=== PATIENT | male | born 1955 | race Hispanic/Latino ===

== ENCOUNTER → 2020-01-03 | Outpatient (CLI) | payer MEDICARE ==
[~2020-01-03] VITALS: Ht 167.6 cm; Wt 88.0 kg
[~2020-01-03] MED LIST: REGADENOSON 0.4 MG/5 ML PF SYG IVP SCH
== END | disposition home or self-care (01) ==
LOC: SHCH 08:20
PROVIDERS: ATTEND Internal Medicine Cardiovascular Disease
DX: R07.9 Chest pain, unspecified (principal)
CPT/HCPCS: 78452; 93017; 96374; A9500 ×2; J2785

== ENCOUNTER 2022-12-24 11:55 | Emergency (ER) | payer OTHER, MEDICARE ==
[~2022-12-24] VITALS: Ht 170.2 cm; Wt 90.7 kg
[2022-12-24] MEDS ORDERED: CLINDAMYCIN IVPB 600MG/50ML 50 ML IV SCH (12:30)
[2022-12-24] MEDS ORDERED: 0.9%NACL 1000ML 1,000 ML IV ONE (12:30)
[2022-12-24 12:48] LABS: BASOPHILS % (AUTO) 0.7 % (0.0-5.0); EOSINOPHILS % (AUTO) 1.5 % (0.0-8.0); HEMATOCRIT 38.2 % (42-54); LYMPHOCYTES % (AUTO) 32.1 % (21.0-51.0); MEAN CORPUSCULAR HEMOGLOBIN 29.6 pg (27.0-33.0); MEAN CORPUSCULAR HGB CONC 34.6 g/dL (32.0-36.0); MEAN CORPUSCULAR VOLUME 85.7 fL (79-99); MONOCYTES % (AUTO) 6.1 % (3.0-13.0); NEUTROPHILS % (AUTO) 59.4 % (40.0-77.0); PLATELET COUNT (AUTO) 225 K/uL (130-400); RED BLOOD CELL COUNT(AUTO) 4.46 MIL/uL (4.50-6.20); RED CELL DISTRIBUTION WIDTH 12.9 % (11.0-15.5); WHITE BLOOD COUNT (AUTO) 4.1 K/uL (4.8-10.8)
[2022-12-24 12:56] LABS: CREATININE 0.8 mg/dL (0.5-1.5); POTASSIUM 4.1 mmol/L (3.5-5.1)
[2022-12-24 13:18] LABS: ALBUMIN 3.7 g/dL (3.5-5.0); TOTAL PROTEIN, SERUM 7.3 g/dL (6.0-8.3)
[2022-12-24] MEDS ORDERED: CLIN-141 PO (13:45)
[2022-12-24 13:58] VITALS: BP 111/52
[2022-12-24 14:23] LABS: APPEARANCE,URINE CLEAR (CLEAR); BILIRUBIN,URINE NEGATIVE (NEGATIVE); COLOR,URINE YELLOW (YELLOW); GLUCOSE, URINE (UA) >=1000 mg/dL (NEGATIVE); KETONES,URINE NEGATIVE (NEGATIVE); LEUKOCYTE ESTERASE ,URINE NEGATIVE Leu/uL (NEGATIVE); NITRATE,URINE NEGATIVE (NEGATIVE); OCCULT BLOOD,URINE NEGATIVE (NEGATIVE); PROTEIN,URINE 20 mg/dL (NEGATIVE)
[2022-12-24 14:29] LABS: BACTERIA,URINE RARE /HPF (None Seen); MUCUS,URINE MOD LPF (None Seen); SQUAMOUS EPITHELIAL CELL,UR RARE /HPF (0-2); WBC,URINE 0-1 /HPF (0-1)
== END 2022-12-24 13:58 | disposition home or self-care (01) ==
LOC: EDH 11:55
DX: L03.032 Cellulitis of left toe (principal); E11.9 Type 2 diabetes mellitus without complications; F03.90 Unspecified dementia, unspecified severity, without behavioral disturbance, psychotic disturbance, mood disturbance, and anxiety
CPT/HCPCS: 99284; 96365; 80053; 85025; 83605; 81001; 36415; 73630; J7030; J3490

== ENCOUNTER 2023-11-18 18:41 | Observation (INO) | payer OTHER, MEDICARE ==
[~2023-11-18] VITALS: Ht 170.2 cm; Wt 83.6 kg
[~2023-11-18 18:41] MED LIST changes: +CLIN-141 PO; -REGADENOSON 0.4 MG/5 ML PF SYG IVP SCH
[2023-11-18 19:28] LABS: CREATININE 1.1 mg/dL (0.5-1.5)
[2023-11-18 19:30] LABS: BASOPHILS # (AUTO) 0.04 K/uL (0.00-0.20); BASOPHILS % (AUTO) 0.8 % (0.0-5.0); EOSINOPHILS # (AUTO) 0.08 K/uL (0.00-0.70); EOSINOPHILS % (AUTO) 1.5 % (0.0-8.0); HEMATOCRIT 37.8 % (42-54); IMMATURE GRANULOCYTE ABSOLUTE 0.01 K/uL (0-1); LYMPHOCYTES % (AUTO) 19.2 % (21.0-51.0); MEAN CORPUSCULAR HGB CONC 34.4 g/dL (32.0-36.0); MEAN CORPUSCULAR VOLUME 87.1 fL (79-99); MONOCYTES # (AUTO) 0.4 K/uL (0.1-1.0); NEUTROPHILS # (AUTO) 3.7 K/uL (1.8-7.7); NEUTROPHILS % (AUTO) 71.3 % (40.0-77.0); PLATELET COUNT (AUTO) 292 K/uL (130-400); RED BLOOD CELL COUNT(AUTO) 4.34 MIL/uL (4.50-6.20); RED CELL DISTRIBUTION WIDTH 12.7 % (11.0-15.5); WHITE BLOOD COUNT (AUTO) 5.3 K/uL (4.8-10.8)
[2023-11-18 19:38] LABS: ALBUMIN 3.6 g/dL (3.5-5.0); BILIRUBIN,TOTAL 0.5 mg/dL (0.2-1.0); MAGNESIUM 1.9 mg/dL (1.80-2.40); TOTAL PROTEIN, SERUM 7.3 g/dL (6.0-8.3)
[2023-11-18] MEDS: ENOXAPARIN SODIUM 80 MG/0.8 ML SQ ONE (20:22)
[2023-11-18] MEDS ORDERED: LACTULOSE 20 GM/30 ML UDCUP PO PRN (21:30)
[2023-11-18] MEDS ORDERED: TEMAZEPAM 15 MG CAPSULE PO PRN (21:30)
[2023-11-18] MEDS ORDERED: ACETAMINOPHEN 650 MG SUPPOSITORY RC PRN (21:30)
[2023-11-18] MEDS ORDERED: HYDRALAZINE 20MG/ML VIAL IV PRN (21:30)
[2023-11-18] MEDS ORDERED: DOCUSATE SODIUM 100 MG CAP PO PRN (21:30)
[2023-11-18] MEDS ORDERED: ONDANSETRON 4MG INJ IVP PRN (21:30)
[2023-11-18] MEDS ORDERED: ALBUTEROL 0.083% 2.5 MG/3 ML INH IH PRN (21:30)
[2023-11-18] MEDS ORDERED: IPRATROPIUM 0.5 MG/2.5 ML INH IH PRN (21:30)
[2023-11-18] MEDS ORDERED: ACETAMINOPHEN 325 MG TAB PO PRN (21:30)
[2023-11-18] MEDS ORDERED: NITROGLYCERIN 0.4 MG SL TAB SL PRN (21:30)
[2023-11-18 22:44] VITALS: PULSE 80; RESP 18; O2SAT 99
[2023-11-18] MEDS: ATORVASTATIN 40 MG TABLET PO SCH (23:37)
[2023-11-18 23:48] LABS: APPEARANCE,URINE CLEAR (CLEAR); BILIRUBIN,URINE NEGATIVE (NEGATIVE); COLOR,URINE LIGHT-YELLOW (YELLOW); GLUCOSE, URINE (UA) >=1000 mg/dL (NEGATIVE); KETONES,URINE NEGATIVE (NEGATIVE); LEUKOCYTE ESTERASE ,URINE NEGATIVE Leu/uL (NEGATIVE); NITRATE,URINE NEGATIVE (NEGATIVE); OCCULT BLOOD,URINE NEGATIVE (NEGATIVE); PROTEIN,URINE 10 mg/dL (NEGATIVE); UROBILINOGEN,URINE 3 mg/dL (0.2-1.0)
[2023-11-18 23:49] LABS: ADD UA MICROSCOPIC YES
[2023-11-19 00:32] LABS: SARS-CoV-2, RNA, NAAT NEGATIVE SARS CoV-2 (NEGATIVE)
[2023-11-19 00:41] LABS: INFLUENZA TYPE A Negative For Type A (NEGATIVE); INFLUENZA TYPE B Negative For Type B (NEGATIVE)
[2023-11-19 07:17] LABS: BASOPHILS # (AUTO) 0.05 K/uL (0.00-0.20); EOSINOPHILS # (AUTO) 0.21 K/uL (0.00-0.70); EOSINOPHILS % (AUTO) 4.3 % (0.0-8.0); HEMATOCRIT 38.9 % (42-54); IMMATURE GRANULOCYTE ABSOLUTE 0.01 K/uL (0-1); LYMPHOCYTES # (AUTO) 1.3 K/uL (1.0-4.8); LYMPHOCYTES % (AUTO) 26.5 % (21.0-51.0); MEAN CORPUSCULAR HEMOGLOBIN 29.4 pg (27.0-33.0); MEAN CORPUSCULAR HGB CONC 33.7 g/dL (32.0-36.0); MEAN CORPUSCULAR VOLUME 87.2 fL (79-99); MONOCYTES # (AUTO) 0.5 K/uL (0.1-1.0); NEUTROPHILS # (AUTO) 2.8 K/uL (1.8-7.7); PLATELET COUNT (AUTO) 277 K/uL (130-400); RED BLOOD CELL COUNT(AUTO) 4.46 MIL/uL (4.50-6.20); RED CELL DISTRIBUTION WIDTH 12.7 % (11.0-15.5); WHITE BLOOD COUNT (AUTO) 4.9 K/uL (4.8-10.8)
[2023-11-19 07:23] LABS: HEMOGLOBIN A1C 8.3 % (4.0-6.0)
[2023-11-19 07:58] LABS: CREATININE 0.7 mg/dL (0.5-1.5); MAGNESIUM 1.9 mg/dL (1.80-2.40); PHOSPHORUS 3.3 mg/dL (2.5-4.9); POTASSIUM 4.2 mmol/L (3.5-5.1); THYROID STIMULATING HORMONE 1.91 uIU/mL (0.36-3.74)
[2023-11-19] MEDS: INSULIN HUMULIN R 100 UNIT/ML 3ML SQ SCH (09:02)
[2023-11-19] MEDS: FAMOTIDINE 20MG TAB PO SCH (09:03)
[2023-11-19] MEDS: ASPIRIN 81MG CHEW TAB PO SCH (09:04)
[2023-11-19] MEDS: ENOXAPARIN SODIUM 40 MG/0.4 ML SYRINGE SQ SCH (09:04)
[2023-11-19 14:45] VITALS: BP 111/60; PULSE 63; RESP 18
[2023-11-19] MEDS ORDERED: MEMA10TA55 PO (17:30)
[2023-11-19] MEDS ORDERED: METO25TA6 PO (17:30)
[2023-11-19] MEDS ORDERED: ATOR10TA69 PO (17:30)
[2023-11-19] MEDS ORDERED: METF-446 PO (17:30)
[2023-11-19] MEDS ORDERED: GLIP5TAB15 PO (17:30)
[2023-11-19] MEDS ORDERED: RIVA1PAT11 TP (17:30)
[2023-11-19 19:00] VITALS: BP 116/68; PULSE 64; RESP 16
[2023-11-19 21:43] VITALS: O2SAT 96
[2023-11-19 23:51] VITALS: BP 124/65; PULSE 65; RESP 16
[2023-11-20 03:00] VITALS: BP 142/77; PULSE 84; RESP 18
[2023-11-20 07:44] VITALS: BP 116/60; PULSE 65; RESP 18
[2023-11-20 08:15] VITALS: O2SAT 98
== END 2023-11-20 10:29 | disposition home or self-care (01) ==
LOC: EDH 18:41 → EDHIP 20:20 → 3BH 11-19 14:45
PROVIDERS: ADMIT Internal Medicine Critical Care Medicine; ATTEND Internal Medicine Critical Care Medicine
DX: I20.9 Angina pectoris, unspecified (principal); Z20.822 Contact with and (suspected) exposure to COVID-19; N17.9 Acute kidney failure, unspecified; E86.0 Dehydration; E87.8 Other disorders of electrolyte and fluid balance, not elsewhere classified; E87.1 Hypo-osmolality and hyponatremia; E11.65 Type 2 diabetes mellitus with hyperglycemia; R25.1 Tremor, unspecified; D64.9 Anemia, unspecified; F03.90 Unspecified dementia, unspecified severity, without behavioral disturbance, psychotic disturbance, mood disturbance, and anxiety; I10 Essential (primary) hypertension; E78.00 Pure hypercholesterolemia, unspecified; F41.9 Anxiety disorder, unspecified; Z79.899 Other long term (current) drug therapy; Z79.82 Long term (current) use of aspirin
CPT/HCPCS: 96372 ×3; 99285; 83735 ×3; 84484 ×4; 80053; 83880; 85025 ×2; 85378; 81001; 36415 ×2; 71045; 93005 ×2; 83036; 84443; 84100; 80048; 87804 ×2; 82948 ×5; 82607; 87635; 93306; J1815 ×2; G0378 ×37; J1650 ×3

== ENCOUNTER 2024-05-19 12:20 | Emergency (ER) | payer OTHER, MEDICARE ==
[~2024-05-19] VITALS: Ht 170.2 cm; Wt 79.4 kg
[~2024-05-19 12:20] MED LIST changes: +ATOR10TA69 PO; -CLIN-141 PO; +GLIP5TAB15 PO; +MEMA10TA21 PO; +METF-446 PO; +METO25TA6 PO; +RIVA1PAT11 TP
[2024-05-19 13:15] LABS: BASOPHILS # (AUTO) 0.04 K/uL (0.00-0.20); BASOPHILS % (AUTO) 0.6 % (0.0-5.0); EOSINOPHILS # (AUTO) 0.03 K/uL (0.00-0.70); EOSINOPHILS % (AUTO) 0.4 % (0.0-8.0); HEMATOCRIT 38.5 % (42-54); IMMATURE GRANULOCYTE ABSOLUTE 0.03 K/uL (0-1); LYMPHOCYTES % (AUTO) 14.7 % (21.0-51.0); MEAN CORPUSCULAR HEMOGLOBIN 29.3 pg (27.0-33.0); MEAN CORPUSCULAR HGB CONC 33.5 g/dL (32.0-36.0); MEAN CORPUSCULAR VOLUME 87.3 fL (79-99); MONOCYTES # (AUTO) 0.7 K/uL (0.1-1.0); NEUTROPHILS % (AUTO) 73.9 % (40.0-77.0); PLATELET COUNT (AUTO) 248 K/uL (130-400); RED BLOOD CELL COUNT(AUTO) 4.41 MIL/uL (4.50-6.20); RED CELL DISTRIBUTION WIDTH 12.5 % (11.0-15.5); WHITE BLOOD COUNT (AUTO) 6.8 K/uL (4.8-10.8)
[2024-05-19 13:20] LABS: POTASSIUM 4.1 mmol/L (3.5-5.1)
[2024-05-19] MEDS: CYCLOBENZAPRINE HCL 10 MG TABLET PO ONE (14:29)
[2024-05-19] MEDS: KETOROLAC 15MG/ML VIAL (15MG/ML) IM ONE (14:30)
[2024-05-19] MEDS: INSULIN HUMULIN R 100 UNIT/ML 3ML SQ ONE (14:33)
[2024-05-19] MEDS: 0.9% NACL 500ML IV.SOLN 500 ML IV ONE (14:38)
[2024-05-19] MEDS ORDERED: CYCL5TAB PO (16:05)
[2024-05-19 16:30] VITALS: BP 114/62; PULSE 74; RESP 16; O2SAT 98
== END 2024-05-19 16:31 | disposition home or self-care (01) ==
LOC: EDH 12:20
DX: F03.90 Unspecified dementia, unspecified severity, without behavioral disturbance, psychotic disturbance, mood disturbance, and anxiety (principal); I10 Essential (primary) hypertension; E78.00 Pure hypercholesterolemia, unspecified; R51.9 Headache, unspecified; E86.0 Dehydration; Z79.84 Long term (current) use of oral hypoglycemic drugs
CPT/HCPCS: 99285; 70450; 71045; 82550; 84484; 80048; 85025; 36415; 96372; 93005; J1815; J1885